=== PATIENT | female | born 1960 | race Caucasian/White ===

== ENCOUNTER 2019-09-05 17:55 | Emergency (ER) | payer OTHER ==
[~2019-09-05] VITALS: Ht 157.4 cm; Wt 49.9 kg
[~2019-09-05 17:55] MED LIST: ABILIFY5 MG PO; ADVAIR 250/501 EA INH; ATROVENT I0.5 MG/2.1 INH; DELTASONE5 MG PO; DOXYCYCLINE100 MG PO; DUONEB 3 MG/3 ML3 M1 NEB; EFFEXOR XR150 M1 PO; LEVOFLOXACIN500 MG PO; MOTRIN800 MG PO; NEURONTIN600 MG PO; PROAIR HFA0.09 MG/AC INH; SPIRIVA18 MCG INH
[2019-09-05 19:32] LABS: BASO % 0.4 % (0.0-1.0); EOS # 0.2 10*3/uL (0.0-0.4); EOS % 1.6 % (1.0-4.0); HEMATOCRIT 35.2 % (37.0-47.0); LYMPH # 2.7 10*3/uL (1.3-4.4); LYMPH % 24.5 % (27.0-41.0); MEAN CELL VOLUME 77.5 fl (81.0-99.0); MEAN CORPUSCULAR HGB 24.2 pg (27.0-31.0); MEAN CORPUSCULAR HGB CONC 31.3 g/dl (33.0-37.0); MEAN PLATELET VOLUME 9.5 fl (9.6-12.3); MONO # 0.8 10*3/uL (0.1-1.0); MONO % 6.9 % (3.0-9.0); NEUT # 7.3 10*3/uL (2.3-7.9); NEUT % 66.3 % (47.0-73.0); PLATELET COUNT AUTOMATED 537 10*3/uL (130-400); RED BLOOD COUNT 4.54 10*6/uL (4.10-5.10); RED CELL DISTRI WIDTH 18.4 % (0-14.5); WHITE BLOOD COUNT 11.1 10*3/uL (4.8-10.8)
[2019-09-05 19:42] LABS: ACT PARTIAL THROMBO TIME 26.7 SECONDS (20.0-32.1); INTERNATIONAL NORM RATIO 0.9 (2.0-3.5)
[2019-09-05 20:02] LABS: ALBUMIN 2.4 gm/dl (3.1-4.5); ALKALINE PHOSPHATASE 90 U/L (45-117); BUN 20 mg/dl (7-24); CHLORIDE 103 mmol/L (98-107); CREATININE 0.64 mg/dL (0.55-1.02); LIPASE 76 U/L (73-393); POTASSIUM 3.9 mmol/L (3.5-5.1); SGOT/AST 16 IU/L (3-35); SGPT/ALT 16 U/L (12-78); SODIUM 136 mmol/L (136-145)
[2019-09-05 20:22] LABS: BILIRUBIN NEGATIVE (NEGATIVE); BLOOD NEGATIVE (NEGATIVE); CLARITY SL CLOUDY (CLEAR); COLOR YELLOW (YELLOW); GLUCOSE NEGATIVE (NEGATIVE); KETONE NEGATIVE (NEGATIVE); LEUKO ESTERASE NEGATIVE (NEGATIVE); NITRITE NEGATIVE (NEGATIVE); PH 6.5 (5.0-9.0); SPECIFIC GRAVITY 1.015 (1.005-1.030); UROBILINOGEN 0.2 E.U./dl (0.2-1.0)
[2019-09-05 20:23] LABS: BACTERIA 1+; EPITHELIAL CELLS 41-50; HYALINE CAST 0-2
[2019-09-05] MEDS ORDERED: MIRALAX17 GM PO (23:01)
[2019-09-05] MEDS ORDERED: PROBIOTIC1 EAC2 PO (23:02)
== END 2019-09-05 23:34 | disposition home or self-care (01) ==
LOC: ED 17:55
PROVIDERS: Nurse Practitioner Family
DX: K59.00 Constipation, unspecified (principal); R19.7 Diarrhea, unspecified; Z88.6 Allergy status to analgesic agent; Z79.899 Other long term (current) drug therapy

== ENCOUNTER → 2022-02-19 | Emergency (ER) | payer MEDICAID ==
[~2022-02-19] VITALS: Ht 167.6 cm; Wt 64.0 kg
[~2022-02-19] MED LIST changes: +MIRALAX17 GM PO; +PROBIOTIC1 EAC2 PO
[2022-02-19 20:20] LABS: BASO % 0.2 % (0.0-1.0); EOS % 0.3 % (1.0-4.0); HEMATOCRIT 41.7 % (37.0-47.0); LYMPH # 1.6 10*3/uL (1.3-4.4); LYMPH % 14.5 % (27.0-41.0); MEAN CELL VOLUME 91.6 fl (81.0-99.0); MEAN CORPUSCULAR HGB 29.7 pg (27.0-31.0); MEAN CORPUSCULAR HGB CONC 32.4 g/dl (33.0-37.0); MEAN PLATELET VOLUME 9.2 fl (9.6-12.3); MONO # 0.5 10*3/uL (0.1-1.0); MONO % 4.7 % (3.0-9.0); NEUT # 8.8 10*3/uL (2.3-7.9); PLATELET COUNT AUTOMATED 384 10*3/uL (130-400); RED BLOOD COUNT 4.55 10*6/uL (4.10-5.10); RED CELL DISTRI WIDTH 14.2 % (0-14.5)
[2022-02-19 20:33] LABS: ACT PARTIAL THROMBO TIME 25.4 SECONDS (20.0-32.1); INTERNATIONAL NORM RATIO 0.9 (2.0-3.5)
[2022-02-19 20:46] LABS: ALKALINE PHOSPHATASE 104 U/L (45-117); BUN 13 mg/dl (7-24); CHLORIDE 104 mmol/L (98-107); CREATININE 0.77 mg/dL (0.55-1.02); POTASSIUM 3.4 mmol/L (3.5-5.1); SGOT/AST 15 IU/L (3-35); SGPT/ALT 23 U/L (12-78); SODIUM 140 mmol/L (136-145); TOTAL PROTEIN 7.3 gm/dL (6.4-8.2)
== END ==
LOC: ED 19:49
PROVIDERS: Emergency Medicine
DX: S09.90XA Unspecified injury of head, initial encounter (principal); J18.9 Pneumonia, unspecified organism; M79.89 Other specified soft tissue disorders; Z79.899 Other long term (current) drug therapy; Z90.710 Acquired absence of both cervix and uterus; W18.39XA Other fall on same level, initial encounter; Y93.89 Activity, other specified; Y92.89 Other specified places as the place of occurrence of the external cause; Y99.8 Other external cause status

== ENCOUNTER 2022-06-09 18:49 | Emergency (ER) | payer MEDICAID, OTHER ==
[~2022-06-09] VITALS: Ht 160 cm; Wt 61.2 kg
[2022-06-09] MEDS ORDERED: MECLIZINE HCL25 M2 PO (19:03)
[2022-06-09] MEDS ORDERED: TRAZODONE100 MG PO (19:03)
[2022-06-09] MEDS ORDERED: ATORVASTATIN CA20 M1 PO (19:04)
[2022-06-09] MEDS ORDERED: LOSARTAN POTASS25 M1 PO (19:04)
[2022-06-09] MEDS ORDERED: FUROSEMIDE20 M1 PO (19:04)
[2022-06-09] MEDS ORDERED: OMEPRAZOLE40 MG PO (19:05)
[2022-06-09] MEDS ORDERED: METOPROLOL SUCC25 M2 PO (19:05)
[2022-06-09] MEDS ORDERED: MIRTAZAPINE15 M2 PO (19:05)
[2022-06-09] MEDS ORDERED: PERCOCET 10-321 EACH PO (19:06)
[2022-06-09] MEDS ORDERED: CLOPIDOGREL75 MG PO (19:06)
[2022-06-09] MEDS ORDERED: CARISOPRODOL350 M1 PO (19:06)
[2022-06-09 21:11] LABS: BASO % 0.1 % (0.0-1.0); LYMPH # 0.5 10*3/uL (1.3-4.4); LYMPH % 7.4 % (27.0-41.0); MEAN CELL VOLUME 92.8 fl (81.0-99.0); MEAN CORPUSCULAR HGB 29.7 pg (27.0-31.0); MONO # 0.4 10*3/uL (0.1-1.0); MONO % 5.1 % (3.0-9.0); NEUT # 6.1 10*3/uL (2.3-7.9); NEUT % 87.1 % (47.0-73.0); PLATELET COUNT AUTOMATED 295 10*3/uL (130-400); RED BLOOD COUNT 4.31 10*6/uL (4.10-5.10)
[2022-06-09 21:27] LABS: ALKALINE PHOSPHATASE 95 U/L (45-117); BUN 14 mg/dl (7-24); CHLORIDE 107 mmol/L (98-107); CREATININE 0.53 mg/dL (0.55-1.02); POTASSIUM 4.3 mmol/L (3.5-5.1); SGOT/AST 8 IU/L (3-35); SGPT/ALT 16 U/L (12-78); SODIUM 141 mmol/L (136-145); TOTAL PROTEIN 6.7 gm/dL (6.4-8.2)
[2022-06-09] MEDS ORDERED: VIBRAMYCIN100 MG PO (22:12)
== END 2022-06-09 22:51 | disposition home or self-care (01) ==
LOC: ED 18:49
PROVIDERS: Physician Assistant
DX: J18.9 Pneumonia, unspecified organism (principal); Z20.822 Contact with and (suspected) exposure to COVID-19; Z88.8 Allergy status to other drugs, medicaments and biological substances; Z79.899 Other long term (current) drug therapy; Z90.710 Acquired absence of both cervix and uterus; F17.200 Nicotine dependence, unspecified, uncomplicated; Z90.89 Acquired absence of other organs